=== PATIENT | male | born 1975 | race African-American/Black ===

== ENCOUNTER 2017-11-17 08:44 | Inpatient (IN) ==
[2017-11-17] MEDS ORDERED: ONDANSETRON 4 MG/2 ML VIAL IV STA (09:15)
[2017-11-17] MEDS ORDERED: SODIUM CHLORIDE 0.9% 500 ML IV STA (09:15)
[2017-11-17 09:49] LABS: Basophils % 0.2 % (0.0-0.8); Eosinophils % 0.1 % (0.00-10.9); Hematocrit 39.1 VOL% (42.0-52.0); Hemoglobin 13.3 GM/DL (14.0-18.0); Immature Granulocytes % 0.4 %; Immature Granulocytes Absolute 0.05 #; Lymphocytes # 1.8 10*3/uL (1.4-4.0); Lymphocytes % 13.6 % (21.2-54.2); Mean Corpuscular Hemoglobin 32 PG (27-34); Mean Corpuscular Volume 93.3 FL (87-102); Mean Platelet Volume 10.1 FL (9.6-12.0); Monocytes # 1.3 10*3/uL (0.11-0.8); Monocytes % 9.4 % (1.7-12.7); Neutrophils # 10.4 10*3/uL (1.4-7.4); Neutrophils % 76.3 % (38.7-73.9); Platelet Count 313 T/CUMM (130-400); Red Blood Count 4.19 MC/CUMM (3.8-5.5); Red Cell Distribution Width 13.9 % (9.3-17.3); White Blood Count 13.6 T/CUMM (4-12)
[2017-11-17 10:00] LABS: Apearance,Urine CLEAR (Clear); Bilirubin,Urine Negative (Negative); Blood, Urine Moderate mg/dL (Negative); Glucose,Urine (UA) Negative (Negative); Ketones,Urine Negative (Negative); Mucus,Urine Moderate /LPF (Occasional); Nitrite,Urine Negative (Negative); Protein,Urine 30 MG/DL; RBC,Urine 30 /HPF (0-4); Urine Color Amber (Yellow); WBC,Urine 2 /HPF (0-6)
[2017-11-17] MEDS ORDERED: LACTATED RINGERS 500 ML IV ONE (10:05)
[2017-11-17 10:25] LABS: Albumin 4.1 G/DL (3.4-5.0); Bilirubin,Total 2.5 MG/DL (0.2-1.0); Calcium 9.3 MG/DL (8.5-10.1); Osmolality,Calculated 272.8 MOS/KG (273-304); Total Protein 8.2 G/DL (6.4-8.3)
[2017-11-17] MEDS ORDERED: AMPICILLIN/SULBACTAM 3,000 MG in SODIUM CHLORIDE 0.9% 100 ML IV STA (13:34)
[2017-11-17] MEDS: SODIUM CHLORIDE 0.9% 1,000 ML IV SCH (16:00)
[2017-11-17] MEDS: ENOXAPARIN 40 MG/0.4 ML SYRINGE SUBCUT SCH (20:30)
[2017-11-17] MEDS: PIPERACILLIN/TAZOBACTAM 3,375 MG in SODIUM CHLORIDE 0.9% 100 ML IV SCH (20:31)
[2017-11-18] MEDS: PIPERACILLIN/TAZOBACTAM 3,375 MG in SODIUM CHLORIDE 0.9% 100 ML IV SCH ×2 (03:03→12:15)
[2017-11-18] MEDS: SODIUM CHLORIDE 0.9% 1,000 ML IV SCH ×3 (03:04→22:39)
[2017-11-18 06:06] LABS: Basophils % 0.1 % (0.0-0.8); Eosinophils # 0.1 10*3/uL (0.0-0.87); Eosinophils % 0.5 % (0.00-10.9); Hematocrit 34.3 VOL% (42.0-52.0); Hemoglobin 11.2 GM/DL (14.0-18.0); Immature Granulocytes % 0.7 %; Immature Granulocytes Absolute 0.08 #; Lymphocytes # 1.8 10*3/uL (1.4-4.0); Lymphocytes % 15.4 % (21.2-54.2); Mean Corpuscular HGB Conc 32.7 GM/DL (32-36); Mean Corpuscular Hemoglobin 31 PG (27-34); Mean Platelet Volume 10.6 FL (9.6-12.0); Monocytes % 9.1 % (1.7-12.7); Neutrophils # 8.5 10*3/uL (1.4-7.4); Neutrophils % 74.2 % (38.7-73.9); Platelet Count 263 T/CUMM (130-400); Red Blood Count 3.61 MC/CUMM (3.8-5.5); Red Cell Distribution Width 13.8 % (9.3-17.3); White Blood Count 11.4 T/CUMM (4-12)
[2017-11-18 06:39] LABS: Albumin 3.1 G/DL (3.4-5.0); Bilirubin,Total 3.4 MG/DL (0.2-1.0); Calcium 8.7 MG/DL (8.5-10.1); Osmolality,Calculated 270.8 MOS/KG (273-304); Potassium 3.5 MMOL/L (3.5-5.1); Risk Ratio 3.44; Total Protein 7.1 G/DL (6.4-8.3); VLDL CHOLESTEROL 13.8 MG/DL
[2017-11-18] MEDS: SIMETHICONE CHEW 125 MG TABLET PO PRN ×2 (09:08→18:00)
[2017-11-18] MEDS: ENOXAPARIN 40 MG/0.4 ML SYRINGE SUBCUT SCH ×2 (09:08→20:05)
[2017-11-18] MEDS: metroNIDAZOLE 500 MG TABLET PO SCH ×3 (14:58→21:34)
[2017-11-18] MEDS: CIPROFLOXACIN 500 MG TABLET PO SCH (20:05)
[2017-11-19 03:31] LABS: Basophils % 0.3 % (0.0-0.8); Eosinophils # 0.1 10*3/uL (0.0-0.87); Eosinophils % 1.1 % (0.00-10.9); Hematocrit 36.2 VOL% (42.0-52.0); Immature Granulocytes % 0.1 %; Immature Granulocytes Absolute 0.01 #; Lymphocytes % 25.5 % (21.2-54.2); Mean Corpuscular HGB Conc 33.1 GM/DL (32-36); Mean Corpuscular Hemoglobin 31 PG (27-34); Mean Corpuscular Volume 94.3 FL (87-102); Mean Platelet Volume 10.2 FL (9.6-12.0); Monocytes # 0.8 10*3/uL (0.11-0.8); Monocytes % 9.9 % (1.7-12.7); Neutrophils % 63.1 % (38.7-73.9); Platelet Count 313 T/CUMM (130-400); Red Blood Count 3.84 MC/CUMM (3.8-5.5); Red Cell Distribution Width 13.8 % (9.3-17.3); White Blood Count 7.9 T/CUMM (4-12)
[2017-11-19 04:02] LABS: Albumin 3.2 G/DL (3.4-5.0); Bilirubin,Direct 0.54 MG/DL (0.0-0.20); Bilirubin,Indirect 2.7 MG/DL (0.0-1.0); Bilirubin,Total 3.2 MG/DL (0.2-1.0); Calcium 8.9 MG/DL (8.5-10.1); Osmolality,Calculated 274.5 MOS/KG (273-304); Potassium 3.9 MMOL/L (3.5-5.1); Total Protein 7.7 G/DL (6.4-8.3)
[2017-11-19] MEDS: metroNIDAZOLE 500 MG TABLET PO SCH (05:28)
[2017-11-19 05:45] LABS: Hepatitis A Ab IgM Quant 0.12 Index; Hepatitis A Ab IgM Result Negative (Negative); Hepatitis B Core IgM Quant 0.19 Index; Hepatitis B Core IgM Result Negative (Negative); Hepatitis B Surface Ag Quant < 0.10 Index; Hepatitis B Surface Ag Result Negative (Negative); Hepatitis C Virus Ab Quant 0.21 Index; Hepatitis C Virus Ab Result Negative (Negative)
[2017-11-19] MEDS: ENOXAPARIN 40 MG/0.4 ML SYRINGE SUBCUT SCH (08:18)
[2017-11-19] MEDS: CIPROFLOXACIN 500 MG TABLET PO SCH (08:18)
[2017-11-19 12:16] VITALS: BP 119/78
== END 2017-11-19 11:00 | disposition home or self-care (01) | DRG 392 ==
LOC: N.ED 08:44 → N.EDINP 14:12 → N.5E 14:49
PROVIDERS: ADMIT Internal Medicine; ATTEND Internal Medicine